=== PATIENT | female | born 1950 | race Caucasian/White ===

== ENCOUNTER → 2018-02-10 | Outpatient (CLI) | payer OTHER | END | disposition home or self-care (01) | LOC: RAH 14:09 | PROVIDERS: ATTEND Emergency Medicine Emergency Medical Services | DX: R93.1 Abnormal findings on diagnostic imaging of heart and coronary circulation (principal); R11.2 Nausea with vomiting, unspecified | CPT/HCPCS: 78227; A9537 ==

== ENCOUNTER 2018-02-27 18:29 | Emergency (ER) | payer OTHER ==
[2018-02-27 19:06] LABS: BASOPHILS % (AUTO) 0.4 % (0.0-5.0); EOSINOPHILS % (AUTO) 0.2 % (0.0-8.0); HEMATOCRIT 42.3 % (36-48); LYMPHOCYTES % (AUTO) 9.8 % (21.0-51.0); MEAN CORPUSCULAR HEMOGLOBIN 32.2 pg (27.0-33.0); MEAN CORPUSCULAR VOLUME 94.7 fL (79-99); MONOCYTES % (AUTO) 5.9 % (3.0-13.0); NEUTROPHILS % (AUTO) 83.7 % (40.0-77.0); PLATELET COUNT (AUTO) 287 K/uL (130-400); RED BLOOD CELL COUNT(AUTO) 4.46 MIL/uL (4.00-5.50); RED CELL DISTRIBUTION WIDTH 13.5 % (11.0-15.5); WHITE BLOOD COUNT (AUTO) 11.7 K/uL (4.8-10.8)
[2018-02-27 19:17] LABS: APPEARANCE,URINE Clear (CLEAR); BILIRUBIN,URINE Negative (NEGATIVE); COLOR,URINE Yellow (YELLOW); GLUCOSE, URINE (UA) Negative (NEGATIVE); KETONES,URINE Trace mg/dL (NEGATIVE); LEUKOCYTE ESTERASE ,URINE Moderate (NEGATIVE); NITRATE,URINE Negative (NEGATIVE); OCCULT BLOOD,URINE Negative (NEGATIVE); PROTEIN,URINE Negative (NEGATIVE); UROBILINOGEN,URINE 0.2 mg/dL (0.2-1.0)
[2018-02-27 19:23] LABS: CREATININE 1.1 mg/dL (0.5-1.5); POTASSIUM 3.7 mmol/L (3.5-5.1)
[2018-02-27 19:27] LABS: ALBUMIN 4.2 g/dL (3.5-5.0); TOTAL PROTEIN, SERUM 8.2 g/dL (6.0-8.3)
[2018-02-27 19:48] LABS: BACTERIA,URINE Few /HPF (None Seen); RBC,URINE 0-1 /HPF (0-1); SQUAMOUS EPITHELIAL CELL,UR 0-2 /HPF (0-2)
== END 2018-02-27 21:46 | disposition home or self-care (01) ==
LOC: EDH 18:29
DX: N30.00 Acute cystitis without hematuria (principal); R50.9 Fever, unspecified; R07.89 Other chest pain; M19.90 Unspecified osteoarthritis, unspecified site; Z88.2 Allergy status to sulfonamides; Z88.6 Allergy status to analgesic agent; Z88.8 Allergy status to other drugs, medicaments and biological substances; Z90.710 Acquired absence of both cervix and uterus; Z90.49 Acquired absence of other specified parts of digestive tract; Z98.890 Other specified postprocedural states
CPT/HCPCS: 36415; 80053; 81001; 83605; 83690; 85025; 87040; 87804

== ENCOUNTER 2018-03-02 03:43 | Emergency (ER) | payer OTHER ==
[2018-03-02 04:29] LABS: BASOPHILS % (AUTO) 0.7 % (0.0-5.0); LYMPHOCYTES % (AUTO) 30.2 % (21.0-51.0); MEAN CORPUSCULAR HEMOGLOBIN 32.3 pg (27.0-33.0); MEAN CORPUSCULAR HGB CONC 33.9 g/dL (32.0-36.0); MEAN CORPUSCULAR VOLUME 95.5 fL (79-99); MONOCYTES % (AUTO) 12.1 % (3.0-13.0); PLATELET COUNT (AUTO) 279 K/uL (130-400); RED BLOOD CELL COUNT(AUTO) 4.08 MIL/uL (4.00-5.50); RED CELL DISTRIBUTION WIDTH 13.5 % (11.0-15.5); WHITE BLOOD COUNT (AUTO) 5.4 K/uL (4.8-10.8)
[2018-03-02 04:30] LABS: APPEARANCE,URINE Clear (CLEAR); BILIRUBIN,URINE Negative (NEGATIVE); COLOR,URINE Yellow (YELLOW); GLUCOSE, URINE (UA) Negative (NEGATIVE); KETONES,URINE Negative (NEGATIVE); LEUKOCYTE ESTERASE ,URINE Small (NEGATIVE); NITRATE,URINE Negative (NEGATIVE); OCCULT BLOOD,URINE Negative (NEGATIVE); PROTEIN,URINE Negative (NEGATIVE); UROBILINOGEN,URINE 0.2 mg/dL (0.2-1.0)
[2018-03-02 04:35] LABS: CREATININE 0.8 mg/dL (0.5-1.5); POTASSIUM 4.3 mmol/L (3.5-5.1)
[2018-03-02 04:51] LABS: BACTERIA,URINE None Seen /HPF (None Seen); RBC,URINE None Seen /HPF (0-1); SQUAMOUS EPITHELIAL CELL,UR Rare /HPF (0-2); WBC,URINE None Seen /HPF (0-1)
== END 2018-03-02 06:43 | disposition home or self-care (01) ==
LOC: EDH 03:43
DX: R39.11 Hesitancy of micturition (principal); R10.30 Lower abdominal pain, unspecified; M19.90 Unspecified osteoarthritis, unspecified site; Z98.890 Other specified postprocedural states; Z88.2 Allergy status to sulfonamides; Z88.1 Allergy status to other antibiotic agents; Z88.6 Allergy status to analgesic agent
CPT/HCPCS: 36415; 74176; 80048; 81001; 85025

== ENCOUNTER → 2022-11-21 | Outpatient (CLI) | payer OTHER | END | disposition home or self-care (01) | LOC: RAH 08:14 | PROVIDERS: ATTEND Internal Medicine | DX: R92.2 Inconclusive mammogram (principal) | CPT/HCPCS: 76641 ==

== ENCOUNTER 2022-12-27 06:46 | Day surgery (SDC) | payer OTHER, MEDICARE ==
[2022-12-24 10:20] LABS: BASOPHILS # (AUTO) 0.03 K/uL (0.00-0.20); BASOPHILS % (AUTO) 0.5 % (0.0-5.0); EOSINOPHILS # (AUTO) 0.07 K/uL (0.00-0.70); EOSINOPHILS % (AUTO) 1.2 % (0.0-8.0); HEMATOCRIT 42.3 % (36-48); IMMATURE GRANULOCYTE ABSOLUTE 0.02 K/uL (0-1); LYMPHOCYTES # (AUTO) 1.4 K/uL (1.0-4.8); LYMPHOCYTES % (AUTO) 22.7 % (21.0-51.0); MEAN CORPUSCULAR HEMOGLOBIN 31.6 pg (27.0-33.0); MEAN CORPUSCULAR HGB CONC 33.6 g/dL (32.0-36.0); MONOCYTES # (AUTO) 0.6 K/uL (0.1-1.0); MONOCYTES % (AUTO) 9.7 % (3.0-13.0); NEUTROPHILS # (AUTO) 3.9 K/uL (1.8-7.7); NEUTROPHILS % (AUTO) 65.6 % (40.0-77.0); PLATELET COUNT (AUTO) 292 K/uL (130-400); RED CELL DISTRIBUTION WIDTH 13.2 % (11.0-15.5)
[2022-12-24 10:22] LABS: APPEARANCE,URINE CLEAR (CLEAR); BILIRUBIN,URINE NEGATIVE (NEGATIVE); COLOR,URINE LIGHT-YELLOW (YELLOW); GLUCOSE, URINE (UA) NEGATIVE (NEGATIVE); KETONES,URINE NEGATIVE (NEGATIVE); LEUKOCYTE ESTERASE ,URINE NEGATIVE Leu/uL (NEGATIVE); NITRATE,URINE NEGATIVE (NEGATIVE); OCCULT BLOOD,URINE NEGATIVE (NEGATIVE); PROTEIN,URINE NEGATIVE (NEGATIVE); UROBILINOGEN,URINE 0.2 mg/dL (0.2-1.0)
[2022-12-24 10:25] LABS: ADD UA MICROSCOPIC NO
[2022-12-24 10:26] VITALS: BP 175/96; PULSE 76; RESP 18
[2022-12-24 10:32] LABS: INR 0.93 (0.85-1.15); PROTHROMBIN TIME 10.7 SEC (9.6-11.6)
[2022-12-24 10:44] LABS: ALBUMIN 3.9 g/dL (3.5-5.0); BILIRUBIN,TOTAL 0.9 mg/dL (0.2-1.0); CREATININE 0.9 mg/dL (0.5-1.5); POTASSIUM 4.1 mmol/L (3.5-5.1); TOTAL PROTEIN, SERUM 7.6 g/dL (6.0-8.3)
[2022-12-27] VITALS (17 sets, daily range): BP systolic 141–169; BP diastolic 68–80; PULSE 62–81; RESP 15–20
[~2022-12-27] VITALS: Ht 152.4 cm; Wt 63.1 kg
[2022-12-27] MEDS ORDERED: LACTATED RINGERS 1000ML 1,000 ML IV ONE (06:55)
[2022-12-27] MEDS: CEFAZOLIN SODIUM 2 GM VIAL ONE ×2 (07:05→09:00)
[2022-12-27] MEDS ORDERED: INDOCYANINE GREEN 25 MG VIAL IJ ONE (07:23)
[2022-12-27] MEDS ORDERED: BUPIVACAINE/PF 0.5% 30ML VIAL ONE (07:31)
[2022-12-27] MEDS ORDERED: SUCCINYLCHOLINE 200MG/10ML SYR ONE (08:02)
[2022-12-27] MEDS ORDERED: ONDANSETRON 4MG INJ ONE (08:02)
[2022-12-27] MEDS ORDERED: MIDAZOLAM HCL 1 MG/ML 2ML VIAL ONE (08:02)
[2022-12-27] MEDS ORDERED: ROCURONIUM 10MG/1ML SYR 10 MG/ML ML ONE (08:02)
[2022-12-27] MEDS ORDERED: METOCLOPRAMIDE 10 MG/2 ML VIAL ONE ×2 (08:02→09:51)
[2022-12-27] MEDS ORDERED: FENTANYL CITRATE PF 50 MCG/1 ML 2ML VIAL ONE (08:02)
[2022-12-27] MEDS ORDERED: PROPOFOL 10 MG/ML 20ML VIAL IV ONE (08:02)
[2022-12-27] MEDS ORDERED: EPHEDRINE SULFATE 50 MG/ML AMPULE ONE (09:21)
[2022-12-27] MEDS ORDERED: NEOSTIGMINE 5MG/5ML SYR IV ONE (09:46)
[2022-12-27] MEDS ORDERED: GLYCOPYRROLATE 1 MG/5 ML SYRINGE ONE (09:47)
[2022-12-27] MEDS ORDERED: DEXAMETHASONE SOD PHOSPHATE 10MG/ML 1ML VIAL ONE (09:51)
== END 2022-12-27 11:45 | disposition home or self-care (01) ==
LOC: DAH 06:46
PROVIDERS: ATTEND Student in an Organized Health Care Education/Training Program
DX: K80.10 Calculus of gallbladder with chronic cholecystitis without obstruction (principal); Z20.822 Contact with and (suspected) exposure to COVID-19; K43.9 Ventral hernia without obstruction or gangrene; I10 Essential (primary) hypertension; K21.9 Gastro-esophageal reflux disease without esophagitis; E78.5 Hyperlipidemia, unspecified; Z79.01 Long term (current) use of anticoagulants; Z79.899 Other long term (current) drug therapy; Z98.890 Other specified postprocedural states; Z98.891 History of uterine scar from previous surgery; Z90.710 Acquired absence of both cervix and uterus; Z90.49 Acquired absence of other specified parts of digestive tract; Z82.49 Family history of ischemic heart disease and other diseases of the circulatory system; Z88.8 Allergy status to other drugs, medicaments and biological substances; Z88.6 Allergy status to analgesic agent; Z88.2 Allergy status to sulfonamides
CPT/HCPCS: 80053; 85025; 85610; 85730; 87426; 81003; 36415; 93005; 47562; 88304; A4663; J7030; J7120 ×2; J3010; J0330; J3490 ×3; J1100; J2710; J2250; J2704; J2405; J2765 ×2; J0690; C1769; A4649; A4215; A4223; A4222; A4221; G0168

== ENCOUNTER → 2023-01-14 | Outpatient (CLI) | payer OTHER, MEDICARE | END | disposition home or self-care (01) | LOC: RAH 08:50 | PROVIDERS: ATTEND Student in an Organized Health Care Education/Training Program | DX: K44.9 Diaphragmatic hernia without obstruction or gangrene (principal); K43.9 Ventral hernia without obstruction or gangrene; K21.9 Gastro-esophageal reflux disease without esophagitis; K44.0 Diaphragmatic hernia with obstruction, without gangrene | CPT/HCPCS: 74240 ==

== ENCOUNTER → 2023-03-19 | Outpatient (CLI) | payer OTHER, MEDICARE | END | disposition home or self-care (01) | LOC: RAH 12:32 | PROVIDERS: ATTEND Family Medicine | DX: R51.9 Headache, unspecified (principal) | CPT/HCPCS: 70551 ==

== ENCOUNTER 2023-05-30 07:34 | Observation (INO) | payer OTHER, MEDICARE ==
[2023-05-27 14:38] VITALS: BP 163/85; PULSE 73; RESP 20
[2023-05-27 14:55] LABS: BASOPHILS # (AUTO) 0.05 K/uL (0.00-0.20); BASOPHILS % (AUTO) 0.8 % (0.0-5.0); EOSINOPHILS # (AUTO) 0.05 K/uL (0.00-0.70); EOSINOPHILS % (AUTO) 0.8 % (0.0-8.0); HEMATOCRIT 41.8 % (36-48); IMMATURE GRANULOCYTE ABSOLUTE 0.02 K/uL (0-1); LYMPHOCYTES # (AUTO) 1.6 K/uL (1.0-4.8); LYMPHOCYTES % (AUTO) 26.6 % (21.0-51.0); MEAN CORPUSCULAR HEMOGLOBIN 31.8 pg (27.0-33.0); MEAN CORPUSCULAR HGB CONC 32.8 g/dL (32.0-36.0); MONOCYTES # (AUTO) 0.6 K/uL (0.1-1.0); MONOCYTES % (AUTO) 8.9 % (3.0-13.0); NEUTROPHILS # (AUTO) 3.9 K/uL (1.8-7.7); NEUTROPHILS % (AUTO) 62.6 % (40.0-77.0); PLATELET COUNT (AUTO) 255 K/uL (130-400); RED BLOOD CELL COUNT(AUTO) 4.31 MIL/uL (4.00-5.50); RED CELL DISTRIBUTION WIDTH 12.5 % (11.0-15.5); WHITE BLOOD COUNT (AUTO) 6.2 K/uL (4.8-10.8)
[2023-05-27 15:05] LABS: APPEARANCE,URINE CLEAR (CLEAR); BILIRUBIN,URINE NEGATIVE (NEGATIVE); COLOR,URINE YELLOW (YELLOW); GLUCOSE, URINE (UA) NEGATIVE (NEGATIVE); KETONES,URINE NEGATIVE (NEGATIVE); LEUKOCYTE ESTERASE ,URINE NEGATIVE Leu/uL (NEGATIVE); NITRATE,URINE NEGATIVE (NEGATIVE); OCCULT BLOOD,URINE NEGATIVE (NEGATIVE); PROTEIN,URINE NEGATIVE (NEGATIVE); UROBILINOGEN,URINE 0.2 mg/dL (0.2-1.0)
[2023-05-27 15:08] LABS: ADD UA MICROSCOPIC NO
[2023-05-27 15:16] LABS: INR < 0.93 (0.85-1.15); PROTHROMBIN TIME 10.5 SEC (9.6-11.6)
[2023-05-27 15:18] LABS: ALBUMIN 3.7 g/dL (3.5-5.0); BILIRUBIN,TOTAL 0.5 mg/dL (0.2-1.0); CREATININE 0.8 mg/dL (0.5-1.5); PARTIAL THROMBOPLASTIN TIME 25.6 SEC (26.3-35.5); POTASSIUM 4.1 mmol/L (3.5-5.1); TOTAL PROTEIN, SERUM 7.4 g/dL (6.0-8.3)
[~2023-05-30] VITALS: Ht 152.4 cm; Wt 64.2 kg
[2023-05-30] VITALS (25 sets, daily range): BP systolic 111–169; BP diastolic 60–93; PULSE 70–93; RESP 17–20
[~2023-05-30 07:34] MED LIST: DEXAMETHASONE SOD PHOSPHATE 10MG/ML 1ML VIAL ONE; FENTANYL CITRATE PF 50 MCG/1 ML 2ML VIAL ONE; GLYCOPYRROLATE 0.2 MG/ML 5 ML VIAL ONE; LIDOCAINE PF 100MG/5ML (2%) SYRINGE 5ML ONE; MIDAZOLAM HCL 1 MG/ML 2ML VIAL ONE; NEOSTIGMINE METHYLSULFATE 1MG/ML IV ONE; ONDANSETRON 4MG INJ ONE; PROPOFOL 10 MG/ML 20ML VIAL IV ONE; ROCURONIUM BROMIDE 10MG/1ML 5ML VL ONE; SUCCINYLCHOLINE CHLORIDE 20 MG/ML 10 ML VIAL ONE
[2023-05-30] MEDS ORDERED: BUPIVACAINE/PF 0.5% 30ML VIAL ONE (07:49)
[2023-05-30] MEDS ORDERED: INDOCYANINE GREEN 25 MG VIAL IJ ONE (07:56)
[2023-05-30] MEDS ORDERED: LACTATED RINGERS 1000ML 1,000 ML IV ONE (07:58)
[2023-05-30] MEDS ORDERED: ALBUMIN (HUMAN) 5% 250 ML IV ONE (08:25)
[2023-05-30] MEDS: CEFAZOLIN SODIUM 2 GM VIAL ONE ×2 (09:15→09:20)
[2023-05-30] MEDS ORDERED: FENTANYL CITRATE PF 50 MCG/1 ML 2ML VIAL ONE (09:17)
[2023-05-30] MEDS ORDERED: PHENYLEPHRINE HCL 10 MG/ML 1ML VIAL IV ONE (11:07)
[2023-05-30] MEDS ORDERED: SUGAMMADEX SODIUM 200 MG/2 ML VIAL IV ONE (12:08)
[2023-05-30] MEDS ORDERED: MEPERIDINE-PF 25 MG/ML SYG ONE (12:25)
[2023-05-30] MEDS ORDERED: MORPHINE 4 MG SYG IVP PRN (16:30)
[2023-05-30] MEDS ORDERED: ONDANSETRON 4MG INJ IVP PRN (16:30)
[2023-05-30] MEDS: SIMETHICONE 80 MG TAB.CHEW PO SCH (20:29)
[2023-05-30] MEDS ORDERED: MEPERIDINE-PF 25 MG/ML SYG IVP PRN (21:00)
[2023-05-30] MEDS ORDERED: DIPHENHYDRAMINE HCL 25 MG CAPSULE PO SCH (21:00)
[2023-05-31] VITALS (8 sets, daily range): BP systolic 149–164; BP diastolic 68–93; PULSE 83–90; RESP 18–20; O2SAT 97–98
[2023-05-31 04:37] LABS: HEMATOCRIT 41.2 % (36-48); MEAN CORPUSCULAR HEMOGLOBIN 31.1 pg (27.0-33.0); MEAN CORPUSCULAR HGB CONC 32.5 g/dL (32.0-36.0); MEAN CORPUSCULAR VOLUME 95.6 fL (79-99); RED BLOOD CELL COUNT(AUTO) 4.31 MIL/uL (4.00-5.50); RED CELL DISTRIBUTION WIDTH 12.9 % (11.0-15.5); WHITE BLOOD COUNT (AUTO) 17.6 K/uL (4.8-10.8)
[2023-05-31 04:55] LABS: ALBUMIN 3.7 g/dL (3.5-5.0); BILIRUBIN,TOTAL 0.8 mg/dL (0.2-1.0); CREATININE 0.9 mg/dL (0.5-1.5); POTASSIUM 4.2 mmol/L (3.5-5.1); TOTAL PROTEIN, SERUM 7.3 g/dL (6.0-8.3)
[2023-05-31] MEDS ORDERED: IBUPROFEN 100 MG/5 ML SUSP UDCUP PO PRN (09:00)
[2023-05-31] MEDS ORDERED: ACETAMINOPHEN 650 MG/20.3 ML UDCUP PO PRN (09:00)
[2023-05-31] MEDS: SIMETHICONE 80 MG TAB.CHEW PO SCH ×3 (09:16→21:27)
[2023-05-31] MEDS: FAMOTIDINE 20MG TAB PO SCH (09:16)
[2023-06-01] VITALS: BP 154/78; PULSE 74; RESP 18
[2023-06-01 04:00] VITALS: BP 154/95; PULSE 90; RESP 16
[2023-06-01 08:00] VITALS: BP 159/98; PULSE 89; RESP 18
[2023-06-01] MEDS: FAMOTIDINE 20MG TAB PO SCH (08:52)
[2023-06-01] MEDS: SIMETHICONE 80 MG TAB.CHEW PO SCH (08:52)
[2023-06-01 11:26] VITALS: BP 163/89; PULSE 91; RESP 18
== END 2023-06-01 14:10 | disposition home or self-care (01) ==
LOC: DAH 07:34 → UNDOADMOB 07:35 → DAHIP 07:35 → DAH 07:35 → 4BH 13:45 → DAHIP 13:45
PROVIDERS: ADMIT Student in an Organized Health Care Education/Training Program; ATTEND Student in an Organized Health Care Education/Training Program
DX: K44.9 Diaphragmatic hernia without obstruction or gangrene (principal); E78.5 Hyperlipidemia, unspecified; I10 Essential (primary) hypertension; R94.5 Abnormal results of liver function studies; K21.9 Gastro-esophageal reflux disease without esophagitis; D72.829 Elevated white blood cell count, unspecified; Z90.710 Acquired absence of both cervix and uterus; Z90.49 Acquired absence of other specified parts of digestive tract; Z86.2 Personal history of diseases of the blood and blood-forming organs and certain disorders involving the immune mechanism
CPT/HCPCS: 80053 ×2; 85025; 85610; 85730; 81003; 36415 ×2; 96374; 96375; 93005; 43282; 88305; 85027; 97161; 97116; 97530 ×2; A6260; G0378 ×47; A4600; A4663; J7030; A4344; A4215 ×2; P9045; J7120; J3010 ×2; J1100; J0330; J3490 ×2; J2001; J2250; J2704; J2405 ×2; J2270; J2710; J0665; J2175; J2371; J0690; G0168; C1781; A4930; A4223; A4222; A4221; Q0163; G8980-CI; G8983-CH

== ENCOUNTER → 2023-08-12 | Outpatient (CLI) | payer OTHER, MEDICARE | END | disposition home or self-care (01) | LOC: RAH 09:34 | PROVIDERS: ATTEND Student in an Organized Health Care Education/Training Program | DX: K44.9 Diaphragmatic hernia without obstruction or gangrene (principal) | CPT/HCPCS: 74240 ==

== ENCOUNTER 2024-08-31 11:18 | Observation (INO) | payer OTHER, MEDICARE ==
[2024-08-31] VITALS (7 sets, daily range): BP systolic 134–148; BP diastolic 63–94; PULSE 69–73; RESP 17–18; TEMP 97.5–97.8; O2SAT 97–99
[~2024-08-31] VITALS: Ht 152.4 cm; Wt 65.3 kg
--- NOTE | 2024-08-31 11:30 | EKG ---
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
[2024-08-31 11:52] LABS: BASOPHILS # (AUTO) 0.05 K/uL (0.00-0.20); BASOPHILS % (AUTO) 0.8 % (0.0-5.0); EOSINOPHILS # (AUTO) 0.05 K/uL (0.00-0.70); EOSINOPHILS % (AUTO) 0.8 % (0.0-8.0); HEMATOCRIT 42.8 % (36-48); IMMATURE GRANULOCYTE ABSOLUTE 0.02 K/uL (0-1); LYMPHOCYTES # (AUTO) 1.7 K/uL (1.0-4.8); LYMPHOCYTES % (AUTO) 27.9 % (21.0-51.0); MEAN CORPUSCULAR HGB CONC 33.2 g/dL (32.0-36.0); MEAN CORPUSCULAR VOLUME 96.4 fL (79-99); MONOCYTES # (AUTO) 0.5 K/uL (0.1-1.0); MONOCYTES % (AUTO) 7.9 % (3.0-13.0); NEUTROPHILS # (AUTO) 3.7 K/uL (1.8-7.7); NEUTROPHILS % (AUTO) 62.3 % (40.0-77.0); PLATELET COUNT (AUTO) 272 K/uL (130-400); RED BLOOD CELL COUNT(AUTO) 4.44 MIL/uL (4.00-5.50); RED CELL DISTRIBUTION WIDTH 12.8 % (11.0-15.5); WHITE BLOOD COUNT (AUTO) 5.9 K/uL (4.8-10.8)
[2024-08-31 11:59] LABS: CREATININE 0.9 mg/dL (0.5-1.0); POTASSIUM 4.1 mmol/L (3.5-5.1)
[2024-08-31 12:02] LABS: INR 0.98 (0.85-1.15); PROTHROMBIN TIME 10.4 SEC (9.6-11.6)
[2024-08-31 12:04] LABS: PARTIAL THROMBOPLASTIN TIME 24.2 SEC (26.3-35.5)
[2024-08-31 12:11] LABS: B-TYPE NATRIURETIC PEPTIDE 50 pg/mL (0-100)
--- NOTE | 2024-08-31 12:21 | HMCIMG ---
PORTABLE CHEST RADIOGRAPH INDICATION: cp COMPARISON: None FINDINGS: cardiac monitor technician leads overlie the field of view. Heart size is normal. The pulmonary vascularity and jammie appear normal. No abnormal pulmonary parenchymal opacity or consolidation identified. No significant pleural effusion noted. No pneumothorax detected. IMPRESSION: No radiographic evidence for any acute cardiopulmonary process.
[2024-08-31] MEDS: LACTATED RINGERS 1000ML 1,000 ML IV ONE (12:23)
--- NOTE | 2024-08-31 12:36 | ERN ---
General Chief Complaint: Chest Pain Stated Complaint: CP Time Seen by MD: 11:19 Source: patient, EMS History of Present Illness Initial Comments This is a 74-year-old female coming in to be evaluated for chest pain. Per patient she was seen by her PCP and sent in for further evaluation secondary to having the chest discomfort. Along with this patient was informed that there was some changes in her EKG. Patient received nitroglycerin sublingual and states her pain findings subsided. Allergies: Coded Allergies: Sulfa (Sulfonamide Antibiotics) (Unverified Allergy, Unknown, 12/24/22) codeine (Unverified Allergy, Unknown, 12/24/22) propoxyphene (Unverified Allergy, Unknown, 12/24/22) tetracycline (Unverified Allergy, Unknown, 12/24/22) Home Meds No Active Prescriptions or Reported Meds Past Medical History Past Medical History: Endometriosis, High Cholesterol Past Surgical History: Appendectomy, Cholecystectomy, Other, Surgical History Other: HERNIA REPAIR, TUBAL LUGATION, TUMOR REMOVAL, HIATAL HERNIA, CARPAL TUNNEL ROS Dictation CONSTITUTIONAL: No chills, no fever, no weakness, no diaphoresis, no malaise. HEAD/FACE: No signs of trauma. EENT: No eye pain, no blurred vision, no tearing, no double vision, no ear pain, no ear discharge, no nose pain, no nasal congestion, no throat pain, no throat swelling, no mouth pain. RESPIRATORY: No cough, no orthopnea, no SOB, no stridor, no wheezing. CARDIOVASCULAR: chest pain, no edema, no palpitations, no syncope. GASTROINTESTINAL/ABDOMINAL: No abdominal pain, no constipation, no diarrhea, no nausea, no vomiting. GENITOURINARY: No abnormal discharge, no dysuria, no frequent urination, no hematuria. No complaints of pain in the genitals. MUSCULOSKELETAL: No back pain, no gout, no joint pain, no joint swelling, no muscle pain, no muscle stiffness, no neck pain. INTEGUMENTARY: No change in color, no change in hair/nails, no dryness, no lesion, no lumps, no rash. NEUROLOGICAL/PSYCH: No anxiety, not depressed, no emotional problem, no headache, no numbness, no pre-existing deficit, no history of seizures, no tremors, no weakness. HEMATOLOGIC/LYMPHATIC: Not anemic, no history of blood clots, no apparent bleeding, no bruising, glands not swollen. All Systems Negative, Except as Noted. Physical Exam Physical Exam Dictation VITAL SIGNS: Reviewed. GENERAL APPEARANCE: Alert, oriented x3, no acute distress, obese. HEAD AND FACE: Non-traumatic. EYES: PERRL, pink conjunctivas, eyelid no trauma, anterior chamber clear. EARS: Pinnas intact and no signs of trauma or erythema. Ear canals clear and no discharge. TMs no erythema. NOSE: No discharge, no bleeding. OROPHARYNX: Mouth normal, teeth no caries, tongue pink. Pharynx clear, no erythema. Tonsils no exudates, no abscesses noted. Mucous membrane moist. NECK: Supple, non-tender, no thyromegaly, no masses, no JVD, no bruits. BREAST: Deferred. CHEST: No tenderness, no crepitus, no paradoxical movement, no retractions. LUNGS: Clear, well-ventilated, symmetric, no rales, no wheezing, no rhonchi, no stridor, good breath sounds bilaterally. HEART: Regular rate, regular rhythm, no murmur, no gallops. VASCULAR: No peripheral edema. ABDOMEN: Soft, positive bowel sounds, nondistended, no guarding, nontender, no rebound, no masses no hepatomegaly, no splenomegaly, no Ochoa's sign, no hernias. RECTAL: Deferred. GENITAL: Deferred. NEUROLOGICAL: Normal speech, gross motor function intact, gross sensory function intact. MUSCULOSKELETAL: Neck nontender, full range of motion, back nontender, full range of motion. EXTREMITIES: Nontender, full range of motion. SKIN: Color pink, dry, no turgor, no rash, no lacerations, no abrasions, no contusions. LYMPHATICS: Deferred. Results Laboratory and Microbiology Lab and Micro Result Laboratory Tests Test 08/31/24 11:46 08/31/24 12:04 White Blood Count 5.9 K/uL (4.8-10.8) Red Blood Count 4.44 MIL/uL (4.00-5.50) Hemoglobin 14.2 g/dL (12.0-16.0) Hematocrit 42.8 % (36-48) Mean Corpuscular Volume 96.4 fL (79-99) Mean Corpuscular Hemoglobin 32.0 pg (27.0-33.0) Mean Corpuscular Hemoglobin Concent 33.2 g/dL (32.0-36.0) Red Cell Distribution Width 12.8 % (11.0-15.5) Platelet Count 272 K/uL (130-400) Mean Platelet Volume 9.7 fL (7.5-10.5) Immature Granulocyte % (Auto) 0.3 % (0-1) Neutrophils (%) (Auto) 62.3 % (40.0-77.0) Lymphocytes (%) (Auto) 27.9 % (21.0-51.0) Monocytes (%) (Auto) 7.9 % (3.0-13.0) Eosinophils (%) (Auto) 0.8 % (0.0-8.0) Basophils (%) (Auto) 0.8 % (0.0-5.0) Neutrophils # (Auto) 3.7 K/uL (1.8-7.7) Lymphocytes # (Auto) 1.7 K/uL (1.0-4.8) Monocytes # (Auto) 0.5 K/uL (0.1-1.0) Eosinophils # (Auto) 0.05 K/uL (0.00-0.70) Basophils # (Auto) 0.05 K/uL (0.00-0.20) Absolute Immature Granulocyte (auto 0.02 K/uL (0-1) Nucleated Red Blood Cells 0.0 % (0.0-0.19) Prothrombin Time 10.4 SEC (9.6-11.6) Prothromb Time International Ratio 0.98 (0.85-1.15) Activated Partial Thromboplast Time 24.2 SEC (26.3-35.5) L Sodium Level 140 mmol/L (136-145) Potassium Level 4.1 mmol/L (3.5-5.1) Chloride Level 103 mmol/L (101-111) Carbon Dioxide Level 28 mmol/L (21-32) Blood Urea Nitrogen 13 mg/dL (7-18) Creatinine 0.9 mg/dL (0.5-1.0) Glomerular Filtration Rate Calc 66 mL/min (>90) Random Glucose 114 mg/dL (70-105) H Total Calcium 9.0 mg/dL (8.5-10.1) Total Creatine Kinase 166 U/L (21-232) Troponin I High Sensitivity 6 ng/L (4-50) B-Type Natriuretic Peptide 50 pg/mL (0-100) Urine Color LIGHT-YELLOW (YELLOW) Urine Appearance CLEAR (CLEAR) Urine pH 5.0 (5.0-8.0) Urine Specific [place] 1.008 (1.001-1.031) Urine Protein NEGATIVE mg/dL (NEGATIVE) Urine Glucose (UA) NEGATIVE mg/dL (NEGATIVE) Urine Ketones NEGATIVE mg/dL (NEGATIVE) Urine Occult Blood NEGATIVE (NEGATIVE) Urine Nitrate NEGATIVE (NEGATIVE) Urine Bilirubin NEGATIVE mg/dL (NEGATIVE) Urine Urobilinogen 0.2 mg/dL (0.2-1.0) Urine Leukocyte Esterase NEGATIVE Víctor/uL Labs Reviewed?: Yes EKG/XRAY/US/CT/MRI EKG Comment 08/31/2024 time 11:22 a.m. Ventricular rate 74 Sinus rhythm [place] [address] wave elevation or depression X-RAY Comment [place] [address] [place] [address] IMAGING REPORT Signed PATIENT: ROYER SERRANO MR#: [id number] : 1950 SEX: F AGE: 74 LOCATION: [facility] ORDER 27 STATUS: [facility] REPORT#: [id number] SERVICE 25 REASON: cp ORDERING PHYSICIAN: ANUJA TIWARI MD PROCEDURE: CXR1VW - CHEST 1VW PORTABLE CHEST RADIOGRAPH INDICATION: cp COMPARISON: None FINDINGS: conveyor monitor leads overlie the field of view. Heart size is normal. The pulmonary vascularity and jammie appear normal. No abnormal pulmonary parenchymal opacity or consolidation identified. No significant pleural effusion noted. No pneumothorax detected. IMPRESSION: No radiographic evidence for any acute cardiopulmonary process. DICTATED BY: MCKENZIE WITT MD DATE: 08/31/241217 ELECTRONICALLY SIGNED BY: MCKENZIE WITT MD DATE: 08/31/24 1221 [facility] MDM: Differential diagnosis: ACS, chest pain, Rationale: Tests considered and ordered secondary to shared decision making include: labs, ECG and radiology Previous outside records reviewed: Old ER visits. Risk of complication and/or morbidity or mortality of patient management: None Medications-Per medication reconciliation Need for hospitalization: Patient does meet criteria for hospitalization. Need for emergency major/minor surgery: No There are no social concerns with this patient. Prescription drug management Prescriptions will include symptomatic care Patient's prior external medical records from other ER visits were reviewed by me as indicated. Prior testing and results from previous visits were reviewed. Prior tests were taken into account with medical decision making and resource utilization, independent historian/historians were used to obtain complete medical history. I independently interpreted the test that were performed, results were reviewed by me and considered findings on radiology if ordered. Medical management and examination interpretation discussions were had by me with other qualified healthcare professionals as indicated for the patient's care. Patient is a 74-year-old female coming in to be evaluated for chest pressure chest pain. Per patient she was evaluated by her PCP and advised to follow up immediately in the nearest ER secondary to changes in the EKG. She did not know which changes were concerning. During ER visit patient has a remained asymptomatic but states that the pain only subsided with the sublingual nitroglycerin. Patient will be admitted under the care of [facility] for further evaluation. ED Course Orders Procedure Category Date Status Time Cbc With Differential LAB 08/31/24 Complete 11:26 Prothrombin Time With LAB 08/31/24 Complete INR 11:26 B-Type Natriuretic LAB 08/31/24 Complete Peptide 11:26 Chest 1vw RAD 08/31/24 Resulted 11:26 12 Lead Ekg Tracing- EKG 08/31/24 Complete Technical 11:26 Lactated Ringers PHA 08/31/24 Complete 1000ml (Lactated 11:30 Creatine Kinase, Total LAB 08/31/24 Complete 11:26 Troponin I High LAB 08/31/24 Complete Sensitivity 11:26 Urinalysis Profile LAB 08/31/24 Complete 11:26 Partial LAB 08/31/24 Complete Thromboplastin Time 11:26 Basic Metabolic Panel LAB 08/31/24 Complete 11:26 Aspirin 81mg Chew Tab PHA 08/31/24 In Process (Aspirin 81mg Chew 13:00 Troponin I High LAB 08/31/24 Logged Sensitivity 12:44 Current Medications Medications (Trade) Dose Ordered Sig/Aki Route PRN Reason Start Time Stop Time Status Last Admin Dose Admin Aspirin (Aspirin 81mg Chew Tab) 81 mg ONCE ONCE PO 08/31/24 13:00 08/31/24 13:01 Lactated Ringer's 1,000 ml @ 0 mls/hr ONCE ONCE IV 08/31/24 11:30 08/31/24 11:31 DC 08/31/24 12:23 Vital Signs Date Time Temp Pulse Resp B/P (MAP) Pulse Ox O2 Delivery O2 Flow Rate FiO2 08/31/24 12:16 98.1 68 16 185/95 97 Room Air* 0 21 08/31/24 11:19 97.5 75 16 188/89 98 Nasal Cannula 2.0 HEART Score Response (Comments) Value History: High suspicion (+2) 2 EKG: Repolarization changes 1 Age: > 65yrs (+2) 2 Risk Factors: 1-2 risk factors (+1) 1 Initial Troponin: Normal limit (0) 0 HEART Score Risk: High Risk for MACE (7-10) Total 6 DX & DISP Disposition: Inpatient Decision to Admit Time: 12:46 Departure Impression: Primary Impression: Chest pain Condition: Stable Scripts No Active Prescriptions or Reported Meds Referrals: FLOWER WAITE M.D. (PCP) ANUJA TIWARI MD Aug 31, 2024 12:36
[2024-08-31 12:40] LABS: APPEARANCE,URINE CLEAR (CLEAR); BILIRUBIN,URINE NEGATIVE (NEGATIVE); COLOR,URINE LIGHT-YELLOW (YELLOW); GLUCOSE, URINE (UA) NEGATIVE (NEGATIVE); KETONES,URINE NEGATIVE (NEGATIVE); LEUKOCYTE ESTERASE ,URINE NEGATIVE Leu/uL (NEGATIVE); NITRATE,URINE NEGATIVE (NEGATIVE); OCCULT BLOOD,URINE NEGATIVE (NEGATIVE); PROTEIN,URINE NEGATIVE (NEGATIVE); UROBILINOGEN,URINE 0.2 mg/dL (0.2-1.0)
[2024-08-31 12:44] LABS: ADD UA MICROSCOPIC NO
[2024-08-31] MEDS: ASPIRIN 81MG CHEW TAB PO ONE (12:58)
[2024-08-31] MEDS ORDERED: LIDOCAINE HCL 2% VISCOUS 30 ML, MAG/ALUM/SIMETH 30ML 30 ML, DICYCLOMINE HCL 20 MG PO PRN (13:00)
[2024-08-31] MEDS ORDERED: ondanSETRON 4MG INJ IV PRN (13:00)
[2024-08-31] MEDS ORDERED: polyETHYLene GLYCol 3350 17 GM POWD.PACK PO PRN (13:00)
[2024-08-31] MEDS ORDERED: acetaMINOPHEN 325 MG TAB PO PRN ×2 (13:00)
[2024-08-31] MEDS ORDERED: guaiFENesin-DM 200/20MG 10ML PO PRN (13:00)
[2024-08-31] MEDS ORDERED: guaiFENesin SUGAR-FREE 100 MG/5 ML UDCUP PO PRN (13:00)
[2024-08-31] MEDS ORDERED: DiphenhydrAMINE HCL 50 MG/ML VIAL IV PRN (13:00)
[2024-08-31] MEDS ORDERED: doCUSate SODIUM 100 MG CAP PO PRN (13:00)
[2024-08-31] MEDS ORDERED: BENZOCAINE/MENTH/CETYLPYRD CL 1 EACH LOZENGE MM PRN (13:00)
[2024-08-31] MEDS ORDERED: LACTULOSE 20 GM/30 ML UDCUP PO PRN (13:00)
[2024-08-31] MEDS ORDERED: NITROGLYCERIN 0.4 MG SL TAB SL PRN (13:00)
[2024-08-31] MEDS ORDERED: MAG/ALUM/SIMETH 30 ML UDCUP PO PRN (13:00)
[2024-08-31] MEDS ORDERED: DiphenhydrAMINE HCL 25 MG CAPSULE PO PRN (13:00)
[2024-08-31] MEDS ORDERED: ARTIFICAL TEARS SOL 15 ML OP PRN (13:00)
[2024-08-31] MEDS: hydrALAZine 25MG TABLET PO PRN (14:48)
--- NOTE | 2024-08-31 15:49 | HP ---
[facility] HISTORY & PHYSICAL Date Patient Seen: Aug 31, 2024 Time of Visit: 15:49 Supervising Physician: [Dr. Elise] Primary Care Physician: [Dr. Rosy Jimenez] Outpatient Specialists: [ ] Inpatient Consults: [] PROBLEM LIST: Atypical chest pain Pleurisy Hypertension Chronic constipation Plan: Repeat troponin Order lipid panel Order echocardiogram Monitor telemetry One time dose of clonidine 0.1 mg Start amlodipine 5mg daily if not improved HPI: [This is a 74-year-old female with a history of hypertension who presents to the ED from her PCP's office for evaluation of chest pain. Patient states her chest pain has mild currently /10 but has been persistent for about a week. She denies any chest pressure, diaphoresis, radiation of pain principal. No shortness of breath on exertion. Her chest pain is reproducible with bending over and twisting of her torso. Troponin is negative X2. EKG reads old previous infarct. Telemetry at bedside shows NSR without ST elevation or depression. No diarrhea but admits a history of constipation due to multiple abdominal surgeries. She states her blood pressure was elevated being with systolic above 200 prior to admission. Does not usually take antihypertensives. She has never seen a patrol mother, denies any significant medical history besides previous abdominal surgeries including appendectomy, cholecystectomy, C- section, hernia repair, and tubal ligation. She is non-smoker. Admits being active in life, cutting her own yard. She has not seen a patrol mother in the past. Admits a hx of similar chest pain in the past and was diagnosed with pleurisy.] PAST MEDICAL HX: see above PAST SURGICAL HX: noncontributory SOCIAL HISTORY: No tobacco, ETOH, or illicit drug use Coded Allergies: Sulfa (Sulfonamide Antibiotics) (Unverified Allergy, Unknown, 12/24/22) codeine (Unverified Allergy, Unknown, 12/24/22) propoxyphene (Unverified Allergy, Unknown, 12/24/22) tetracycline (Unverified Allergy, Unknown, 12/24/22) REVIEW OF SYSTEMS: 12 point ROS reviewed with patient. Pertinent positives mentioned above. Otherwise negative. PHYSICAL EXAM: GENERAL: alert, weak, awake oriented x 3 HEENT: EOMI, Sclera non icteric, moist mucosa NECK: Supple, no JVD, trachea midline LUNGS: Clear breath sounds bilaterally. No wheezes HEART: Regular rate and rhythm. Normal S1 and S2, without murmurs ABD: Abdomen soft, nontender. Bowel sounds present EXT: No clubbing cyanosis or edema NEURO: Alert and oriented to person, follows commands Vital Signs (last 8hr) Date Time Temp Pulse Resp B/P (MAP) Pulse Ox O2 Delivery O2 Flow Rate FiO2 08/31/24 14:48 98.1 89 18 192/97 98 Room Air* 0 21 08/31/24 14:26 71 18 N/A Room Air 21 08/31/24 12:16 98.1 68 16 185/95 97 Room Air* 0 21 08/31/24 11:19 97.5 75 16 188/89 98 Nasal Cannula 2.0 LABS: Hematology Labs: Test 08/31/24 11:46 Range/Units White Blood Count 5.9 4.8-10.8 K/uL Red Blood Count 4.44 4.00-5.50 MIL/uL Hemoglobin 14.2 12.0-16.0 g/dL Hematocrit 42.8 36-48 % Mean Corpuscular Volume 96.4 79-99 fL Mean Corpuscular Hemoglobin 32.0 27.0-33.0 pg Mean Corpuscular Hemoglobin Concent 33.2 32.0-36.0 g/dL Red Cell Distribution Width 12.8 11.0-15.5 % Platelet Count 272 130-400 K/uL Mean Platelet Volume 9.7 7.5-10.5 fL Immature Granulocyte % (Auto) 0.3 0-1 % Neutrophils (%) (Auto) 62.3 40.0-77.0 % Lymphocytes (%) (Auto) 27.9 21.0-51.0 % Monocytes (%) (Auto) 7.9 3.0-13.0 % Eosinophils (%) (Auto) 0.8 0.0-8.0 % Basophils (%) (Auto) 0.8 0.0-5.0 % Neutrophils # (Auto) 3.7 1.8-7.7 K/uL Lymphocytes # (Auto) 1.7 1.0-4.8 K/uL Monocytes # (Auto) 0.5 0.1-1.0 K/uL Eosinophils # (Auto) 0.05 0.00-0.70 K/uL Basophils # (Auto) 0.05 0.00-0.20 K/uL Absolute Immature Granulocyte (auto 0.02 0-1 K/uL Nucleated Red Blood Cells 0.0 0.0-0.19 % Chemistry Labs: Test 08/31/24 13:26 08/31/24 11:46 Range/Units Troponin I High Sensitivity 8 4-50 ng/L Sodium Level 140 136-145 mmol/L Potassium Level 4.1 3.5-5.1 mmol/L Chloride Level 103 101-111 mmol/L Carbon Dioxide Level 28 21-32 mmol/L Blood Urea Nitrogen 13 7-18 mg/dL Creatinine 0.9 0.5-1.0 mg/dL Glomerular Filtration Rate Calc 66 >90 mL/min Random Glucose 114 H 70-105 mg/dL Total Calcium 9.0 8.5-10.1 mg/dL Total Creatine Kinase 166 21-232 U/L B-Type Natriuretic Peptide 50 0-100 pg/mL Coagulation Labs: Test 08/31/24 11:46 Range/Units Prothrombin Time 10.4 9.6-11.6 SEC Prothromb Time International Ratio 0.98 0.85-1.15 Activated Partial Thromboplast Time 24.2 L 26.3-35.5 SEC DIAGNOSTICS / RADIOLOGY RESULTS: [ ] PLAN NEURO: Minimize central acting medications as possible. Maintain fall precautions, adequate lighting during the day PULMONARY: Supplemental 02 as needed. Maintain aspiration precautions at all times CARDIOVASCULAR: Follow hemodynamics. Vital signs per facility protocol GI & NUTRITION: Continue with nutritional support. Continue stool softeners and laxatives as needed. KIDNEYS & ELECTROLYTES: Strict monitoring of intake, output and overall fluid balance. Avoid nephrotoxic medications to the extent possible. Medications to be dosed according to renal function. Monitor electrolytes and replace as needed ENDOCRINE: Maintain blood glucose between 100-180 at all times. Hypoglycemia protocol in place INFECTIOUS DISEASE: Trend temperature, WBC and procalcitonin level Follow cultures, deescalate antibiotics as soon as possible. Panculture if new onset fever ONCOLOGY/HEMATOLOGY/COAGULATION: Monitor for s/s of bleeding Monitor hemoglobin, coagulation studies as needed SKIN: Pressure ulcer prevention per facility protocol Specialty mattress ORTHO/REHAB: Continue PT/OT Prophylaxis: Continue GI and DVT prophylaxis Code Status: Full Resuscitation Disposition: TBD Other: Total patient care time exceeds 35 minutes excluding all procedures. SHAR ARELLANO Aug 31, 2024 15:49
[2024-08-31] MEDS: INSULIN LISpro 100 UNIT/ML 3ML SQ SCH (16:20)
[2024-08-31] MEDS ORDERED: CEFD300C3 PO ×2 (16:36)
[2024-08-31] MEDS: cloNIDine HCL 0.1 MG TABLET PO ONE (16:37)
--- NOTE | 2024-08-31 16:38 | NUR ---
REPORT GIVEN TO REMIGIO NURSE AT 1630 PT AAOX4. PT STABLE NO DISTRESS, BLOOD PRESSURE IS ELEVATED, CALLED SPOKE TO SHAR COLON ORDER FOR CLONIDE, PT GIVEN DOSE PO PRIOR TO TRANFER TO FLOOR, REMIGIO AWARE. SHAR WILL GO TO ROOM AND RECHECK WITH PT TO SEE BLOOD PRESSURE IF IMPROVED.
[2024-08-31] MEDS: ALBUTEROL 0.083% 2.5 MG/3 ML INH IH SCH (19:14)
[2024-08-31] MEDS: FAMOTIDINE 20MG TAB PO SCH (20:22)
[2024-08-31] MEDS ORDERED: FAMOTIDINE 20MG VIAL IV SCH (21:00)
[2024-09-01] VITALS (9 sets, daily range): BP systolic 134–153; BP diastolic 73–79; PULSE 66–79; RESP 16–19; TEMP 97.7–98.2; O2SAT 95–98
[2024-09-01] MEDS ORDERED: IOHEXOL-350 75 ML VIAL IV ONE (11:22)
--- NOTE | 2024-09-01 12:27 | HMCIMG ---
CT ANGIOGRAM OF THE CHEST WITHOUT AND WITH CONTRAST. CT RECONSTRUCTIONS INDICATION: Pulmonary embolism evaluation TECHNIQUE: Routine axial images using 3 mm slice thickness were acquired from the lung apices to the bases before and after the intravenous administration of 75 mL of Omnipaque 350 contrast material using the pulmonary embolism protocol. Maximum Intensity Projection imaging in the sagittal and coronal planes were also provided. CT was performed with one or more of the following dose reduction techniques: Automated exposure control, adjustment of the mA and/or kV according to patient size, or use of iterative reconstruction technique. COMPARISON: 02/10/2023 CT chest FINDINGS: The contrast bolus is of good quality for diagnosis of pulmonary embolism. The heart size is within normal limits without pericardial effusion. The main pulmonary arteries, segmental branches, and visualized subsegmental pulmonary arteries appear normal without intraluminal filling defects. Pulmonary trunk is not enlarged. No evidence for thoracic aortic aneurysm or dissection. The origins of the great vessels and thoracic aorta appear normal. The visible portions of the trachea and airways are patent. No pleural effusion, pneumothorax, abnormal opacity or consolidation, pulmonary nodule, or mass identified. Linear scarring at both lung bases. No axillary, hilar, or mediastinal lymphadenopathy detected. Small hiatal hernia. Visible osseous structures are intact. IMPRESSION: No evidence for pulmonary embolism. Small hiatal hernia.
[2024-09-01] MEDS: 0.9% NACL 500ML IV.SOLN 500 ML IV SCH (15:03)
[2024-09-01] MEDS ORDERED: AMLO-257 PO (16:01)
--- NOTE | 2024-09-01 16:06 | DS ---
[facility] DISCHARGE SUMMARY Date Patient Seen: Sep 01, 2024 Time of Visit: 16:02 Supervising Physician: [Dr. Marie] Primary Care Physician: [Dr. Rosy Jimenez] Outpatient Specialists: [ ] Inpatient Consults: [] PROBLEM LIST: Atypical chest pain, Pleurisy Hypertension Chronic constipation Plan: Start amlodipine 5mg daily F/U with PCP for monitoring of blood pressure CTA negative for PE Troponin negative X 3 HOSPITAL COURSE: HPI (per admitting provider) [This is a 74-year-old female with a history of hypertension who presents to the ED from her PCP's office for evaluation of chest pain. Patient states her chest pain has mild currently 05/28 but has been persistent for about a week. She denies any chest pressure, diaphoresis, radiation of pain principal. No shortness of breath on exertion. Her chest pain is reproducible with bending over and twisting of her torso. Troponin is negative X2. EKG reads old previous infarct. Telemetry at bedside shows NSR without ST elevation or depression. No diarrhea but admits a history of constipation due to multiple abdominal surgeries. She states her blood pressure was elevated being with systolic above 200 prior to admission. Does not usually take antihypertensives. 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 She is non-smoker. Admits being active in life, cutting her own yard. She has not seen a roof bolting coal miner in the past. Admits a hx of similar chest pain in the past and was diagnosed with pleurisy.] 09/01 Patient states continues with nonspecific pain, reproducible with inspiration and moving of torso. CTA chest was negative for PE. Troponin remains negative. No adverse events per tele. Has minimal hypertension. Will start amlodipine. Patient was discharged home in stable condition, advised to follow up with her PCP for monitoring of blood pressure. Patient verbalized understanding. CHRONIC PROBLEMS: continue previous management per PCP unless otherwise indicated DISCHARGE MEDICATIONS: As listed below Pt hemodynamically stable and afebrile at time of discharge. PCP notified of patients admission, hospital course and discharge. New Medications: Amlodipine Besylate (Amlodipine Besylate) 5 Mg Tablet 1 TAB PO DAILY for 30 Days, #30 TAB 0 Refills Discontinued Medications: Cefdinir (Cefdinir) 300 Mg Capsule 300 MG PO BID, CAP PHYSICAL EXAM: GENERAL: alert, weak, awake oriented x 3 HEENT: EOMI, Sclera non icteric, moist mucosa NECK: Supple, no JVD, trachea midline LUNGS: Clear breath sounds bilaterally. No wheezes HEART: Regular rate and rhythm. Normal S1 and S2, without murmurs ABD: Abdomen soft, nontender. Bowel sounds present EXT: No clubbing cyanosis or edema NEURO: Alert and oriented to person, follows commands FOLLOW-UP: Follow-up with PCP in 2-3 days. Start amlodipine 5 mg daily, monitor blood pressure with PCP upon discharge. RECOMMENDATIONS: See Discharge Instructions This case was seen and discussed with my supervising physician. More than 30 minutes spent on discharge process, including evaluation of the patient, discussion with nursing staff, medication reconciliation and follow-up appointments SHAR ARELLANO Sep 01, 2024 16:06
== END 2024-09-01 18:36 | disposition home or self-care (01) ==
LOC: EDH 11:18 → EDHIP 11:19 → UNDOADMOB 12:50 → 3BH 16:50
PROVIDERS: ADMIT Internal Medicine Pulmonary Disease; ATTEND Internal Medicine Pulmonary Disease
DX: R07.89 Other chest pain (principal); R09.1 Pleurisy; I10 Essential (primary) hypertension; K59.09 Other constipation; E78.00 Pure hypercholesterolemia, unspecified; Z90.49 Acquired absence of other specified parts of digestive tract; Z79.899 Other long term (current) drug therapy
CPT/HCPCS: 36415; 71045; 71270; 80048; 81003; 82550; 83880; 84484; 85025; 85610; 85730; 93005; 94640; 94664; 96360; G0378; Q9967

== ENCOUNTER → 2024-10-01 | Outpatient (CLI) | payer MEDICARE ==
[~2024-10-01] MED LIST changes: +AMLO-257 PO; -DEXAMETHASONE SOD PHOSPHATE 10MG/ML 1ML VIAL ONE; -FENTANYL CITRATE PF 50 MCG/1 ML 2ML VIAL ONE; -GLYCOPYRROLATE 0.2 MG/ML 5 ML VIAL ONE; -LIDOCAINE PF 100MG/5ML (2%) SYRINGE 5ML ONE; -MIDAZOLAM HCL 1 MG/ML 2ML VIAL ONE; -NEOSTIGMINE METHYLSULFATE 1MG/ML IV ONE; -ONDANSETRON 4MG INJ ONE; -PROPOFOL 10 MG/ML 20ML VIAL IV ONE; -ROCURONIUM BROMIDE 10MG/1ML 5ML VL ONE; -SUCCINYLCHOLINE CHLORIDE 20 MG/ML 10 ML VIAL ONE
--- NOTE | 2024-10-01 14:17 | HMCIMG ---
Exam Type: CT HEAD/BRAIN W/O CONTRAST Clinical Information: Transient alteration of awareness Comparison: None CT Dose Index (CTDI): 57.33 mGy Dose Length Product (DLP): 956.79 total mGy-cm Findings: The examination is unremarkable. Grajeda-white matter junction is preserved. No intra or extra axial lesions or fluid collections are seen. Specifically, grajeda and white matter are normal in signal characteristics with normal caliber of ventricles and periventricular cisterns with no evidence of intra or or extra-axial hemorrhage, lacunar infarct, or major territorial infarct, mass, or other abnormality. There are no infarcts. There are no hemorrhages. Periventricular white matter locations are preserved. The orbital contents and structures of the posterior fossa are intact. Impression: Normal CT of the head. This study was performed using dose reduction techniques to include automated exposure control and/or adjustment of the mA and/or kV according to patient size.
== END | disposition home or self-care (01) ==
LOC: RAH 12:47
PROVIDERS: ATTEND Family Medicine
DX: R40.4 Transient alteration of awareness (principal)
CPT/HCPCS: 70450

== ENCOUNTER → 2024-10-27 | Outpatient (CLI) | payer MEDICARE, MEDICAID ==
--- NOTE | 2024-10-27 16:30 | HMCSR ---
APPROVED REPORT EXAM: Two-dimensional and M-mode echocardiogram with Doppler and color Doppler. INDICATION ICD: Z13.6 2D Dimensions RVDd3.4 cmLVEF(%)61.2 (>50%)LVED Vol(simp.)48.0 mL IVSd0.8 (0.7-1.1cm)FS(%)33 %LVES Vol(simp.)20.0 mL LVDd4.6 (3.8-5.6cm)LA (2D)3.6 (1.6-4.0cm)LVEF(%, simp.)59 % PWd0.7 (0.7-1.1cm)Ao Root(2D)3.1 (2.0-3.7cm)LA ESV INDEX (BP)31.34 mL/m2 IVSs0.9 cmLVOT diam1.9 (1.8-2.4cm) LVDs3.1 (2.5-4.0cm)IVC diam0.8 cm PWs1.1 cm M-Mode Dimensions EPSS0.3 cm LA (MM)3.7 (1.6-4.0cm) Ao Root(MM)3.1 (2.0-3.7cm) Aortic Valve AoV Vmax1.4 m/[place] Peak GR8.4 mmHgLVOT Vmax1.2 m/s AoV VTI0.3 mAo Mean GR4.2 mmHgLVOT VTI0.26 m DOMINGO (VMAX)2.33 cm2AVA (VTI) 2.4 cm2 Mitral Valve MV E Vmax84.5 cm/sDECEL Rrqs035 ms MV A Vmax87.8 cm/sP 1/2 T32 ms E/A ratio1.0MVA (PHT)6.9 cm2 TDI E/E' Rvcdey80.0E/E' Kjoqcit67.2 Medial E' Peak V5.29 cm/sLateral E' Peak V6.95 cm/s Pulmonary Valve PV Vmax1.0 m/sPV VTI0.21 mPV Mean GR2.6 mmHg PV Peak GR4.3 mmHg Tricuspid Valve TR Vmax2.3 m/sRAP (EST) 3 tsNpCVEP34.4 mmHg TR Peak GR20.4 mmHg Left Ventricle The left ventricle is normal size. There is normal left ventricular wall thickness. LVEF is 60-65%. T he left ventricular diastolic function is normal. Right Ventricle The right ventricle is normal size. The right ventricular systolic function is normal. Atria The left atrium size is normal. The right atrium size is normal. Aortic Valve Aortic valve is trileaflet and opens well. No aortic regurgitation is present. There is no aortic yusra vular stenosis. Mitral Valve The mitral valve is normal in structure. There is trace of mitral valve regurgitation noted. There is no mitral valve stenosis. Tricuspid Valve The tricuspid valve is normal in structure. There is trace of tricuspid valve regurgitation noted. Pulmonic Valve The pulmonary valve is normal in structure. There is no pulmonic valvular regurgitation. Great Vessels The aortic root is normal in size. The IVC is normal in size and collapses >50% with inspiration. Pericardium There is no pericardial effusion. Other Information Quality : Adequate Conclusion LVEF is 60-65%.
== END | disposition home or self-care (01) ==
LOC: RAH 13:22
PROVIDERS: ATTEND Family Medicine
DX: Z13.6 Encounter for screening for cardiovascular disorders (principal)
CPT/HCPCS: 93306

== ENCOUNTER → 2024-10-28 | Outpatient (CLI) | payer MEDICARE, MEDICAID ==
--- NOTE | 2024-10-28 10:13 | HMCIMG ---
Findings: No fluid collections or masses are seen. Significantly, there is no evidence of hematoma. No increased fluid throughout the visualized tissue planes is identified. No lymphadenopathy is identified. Impression: No evidence of hematoma or fluid collections or other abnormalities. Normal sized lymph nodes seen bilaterally.
== END | disposition home or self-care (01) ==
LOC: RAH 09:11
PROVIDERS: ATTEND Family Medicine
DX: R59.0 Localized enlarged lymph nodes (principal); M79.89 Other specified soft tissue disorders
CPT/HCPCS: 76536

== ENCOUNTER 2024-11-05 11:38 | Emergency (ER) | payer OTHER, MEDICARE ==
[~2024-11-05] VITALS: Ht 157.5 cm; Wt 65.8 kg
[2024-11-05 12:12] LABS: BASOPHILS # (AUTO) 0.05 K/uL (0.00-0.20); BASOPHILS % (AUTO) 0.9 % (0.0-5.0); EOSINOPHILS # (AUTO) 0.07 K/uL (0.00-0.70); EOSINOPHILS % (AUTO) 1.3 % (0.0-8.0); HEMATOCRIT 40.9 % (36-48); IMMATURE GRANULOCYTE ABSOLUTE 0.01 K/uL (0-1); LYMPHOCYTES # (AUTO) 1.1 K/uL (1.0-4.8); LYMPHOCYTES % (AUTO) 20.7 % (21.0-51.0); MEAN CORPUSCULAR HEMOGLOBIN 32.6 pg (27.0-33.0); MEAN CORPUSCULAR HGB CONC 34.5 g/dL (32.0-36.0); MEAN CORPUSCULAR VOLUME 94.5 fL (79-99); MONOCYTES # (AUTO) 0.5 K/uL (0.1-1.0); MONOCYTES % (AUTO) 8.7 % (3.0-13.0); NEUTROPHILS # (AUTO) 3.7 K/uL (1.8-7.7); NEUTROPHILS % (AUTO) 68.2 % (40.0-77.0); PLATELET COUNT (AUTO) 292 K/uL (130-400); RED BLOOD CELL COUNT(AUTO) 4.33 MIL/uL (4.00-5.50); RED CELL DISTRIBUTION WIDTH 13.2 % (11.0-15.5); WHITE BLOOD COUNT (AUTO) 5.4 K/uL (4.8-10.8)
[2024-11-05 12:19] LABS: CREATININE 0.8 mg/dL (0.5-1.0); POTASSIUM 4.3 mmol/L (3.5-5.1)
--- NOTE | 2024-11-05 12:33 | NUR ---
CALL LIGHT PROVIDED TO PT. LIGHT TURNED OFF FOR COMFORT.
[2024-11-05] MEDS ORDERED: IOHEXOL-350 75 ML VIAL IV ONE ×2 (12:49→12:56)
[2024-11-05] MEDS: 0.9%NACL 1000ML 1,000 ML IV STA (13:59)
--- NOTE | 2024-11-05 15:34 | HMCIMG ---
CT PELVIS W/CONTRAST HISTORY: Rule out abscess COMPARISON: None TECHNIQUE: Multiple sequential axial images of the pelvis were obtained from the iliac crests through symphysis pubis. Patient was given 75 cc of Omnipaque through intravenous route. Oral contrast was not given. FINDINGS: There are normal sized pelvic and inguinal lymph nodes. Fecal material seen throughout the colon. Diverticula are seen within the colon consistent with diverticulosis. No ascites is seen. Atherosclerotic changes are present. Irregularity is seen in the lateral area with soft tissue density most likely related to perianal abscess versus inflammatory changes. There is diverticulosis. Pelvic sidewalls are symmetric bilaterally. The bladder is poorly distended. IMPRESSION: 1. Irregularity is seen in the lateral area with soft tissue density most likely related to perianal abscess versus inflammatory changes. There is diverticulosis. CT was performed with one or more following dose reduction techniques: automated exposure control, adjustment of the mA and kv according to patient's size, or use of a iterative reconstruction technique.
--- NOTE | 2024-11-05 15:44 | ERN ---
ED Note History of Present Illness Stated Complaint: RT BUTTOCK ABSCESS Chief Complaint: Abscess Time Seen by MD: 11:41 Time Seen by Midlevel: 11:44 Dictation: 74-year-old female coming in with complaining of rectal pain onset one month. Worsening today. Patient states she does have a history and abdomen abscess where she had to be admitted to the ICU. Denies having any fever nausea or vomiting or diarrhea or any blood in stool. Medical history includes hypertension, surgical history includes hernia repair, appendectomy, hysterectomy, cholecystectomy. Allergies: Coded Allergies: codeine (Unverified Allergy, Unknown, 12/24/22) Sulfa (Sulfonamide Antibiotics) (Unverified Adverse Reaction, Unknown, 11/05/24) UPSET STOMACH propoxyphene (Unverified Adverse Reaction, Unknown, 11/05/24) UPSET STOMACH. tetracycline (Unverified Adverse Reaction, Unknown, 11/05/24) UPSET STOMACH. NOT ALLERGIC REACTION Home Meds Active Scripts Clindamycin HCl (Clindamycin HCl) 300 Mg Capsule, 1 CAP PO TID for 10 Days, #30 CAP 0 Refills Prov:ROSIBEL UREÑA NP 11/05/24 Amlodipine Besylate (Amlodipine Besylate) 5 Mg Tablet, 1 TAB PO DAILY for 30 Days, #30 TAB 0 Refills Prov:SHAR ARELLANO 09/01/24 Past Medical History Past Medical History: Abscess, Hypertension Surgical History: Appendectomy, Cholecystectomy, BTL, Surgical History Other: HERNIA REPAIR, SINUS, CTR Review of System Dictation Constitutional: Negative for fever,chills, and weight loss Eyes: Negative for injury, pain,redness, and discharge ENT: Negative for injury,pain or swelling Cardiovascular: Negative for chest pain, palpitations, and edema Respiratory: Negative for shortness of breath, cough, and wheezing, Abdomen/GI: Negative for abdominal pain, nausea, vomiting, diarrhea, and constipation Back: Negative for injury and pain : Negative for injury, bleeding and discharge, rectal pain MS/Extremity: Negative for injury and deformity Skin: Negative for rash, and discoloration Neuro: Negative for headache, weakness, numbness, tingling, and seizure Psych: Negative for suicide ideation, homicidal ideation, and hallucinations Review of Systems: was completed Initial Vital Sign VS Vital Signs Date Time Temp Pulse Resp B/P (MAP) Pulse Ox O2 Delivery O2 Flow Rate FiO2 11/05/24 11:40 98.2 73 16 159/85 99 Room Air 0 11/05/24 12:00 21 Physical Exam Dictation Constitutional: Negative for fever,chills, and weight loss Eyes: Negative for injury, pain,redness, and discharge ENT: Negative for injury,pain or swelling Cardiovascular: Negative for chest pain, palpitations, and edema Respiratory: Negative for shortness of breath, cough, and wheezing, Abdomen/GI: Negative for abdominal pain, nausea, vomiting, diarrhea, and constipation Back: Negative for injury and pain : Negative for injury, bleeding and discharge MS/Extremity: Negative for injury and deformity Skin: Negative for rash, and discoloration Neuro: Negative for headache, weakness, numbness, tingling, and seizure Psych: Negative for suicide ideation, homicidal ideation, and hallucinations Results (Laboratory/Radiology) Laboratory/Radiology Laboratory Tests Test 11/05/24 12:04 11/05/24 15:41 White Blood Count 5.4 K/uL (4.8-10.8) Red Blood Count 4.33 MIL/uL (4.00-5.50) Hemoglobin 14.1 g/dL (12.0-16.0) Hematocrit 40.9 % (36-48) Mean Corpuscular Volume 94.5 fL (79-99) Mean Corpuscular Hemoglobin 32.6 pg (27.0-33.0) Mean Corpuscular Hemoglobin Concent 34.5 g/dL (32.0-36.0) Red Cell Distribution Width 13.2 % (11.0-15.5) Platelet Count 292 K/uL (130-400) Mean Platelet Volume 9.7 fL (7.5-10.5) Immature Granulocyte % (Auto) 0.2 % (0-1) Neutrophils (%) (Auto) 68.2 % (40.0-77.0) Lymphocytes (%) (Auto) 20.7 % (21.0-51.0) L Monocytes (%) (Auto) 8.7 % (3.0-13.0) Eosinophils (%) (Auto) 1.3 % (0.0-8.0) Basophils (%) (Auto) 0.9 % (0.0-5.0) Neutrophils # (Auto) 3.7 K/uL (1.8-7.7) Lymphocytes # (Auto) 1.1 K/uL (1.0-4.8) Monocytes # (Auto) 0.5 K/uL (0.1-1.0) Eosinophils # (Auto) 0.07 K/uL (0.00-0.70) Basophils # (Auto) 0.05 K/uL (0.00-0.20) Absolute Immature Granulocyte (auto 0.01 K/uL (0-1) Nucleated Red Blood Cells 0.0 % (0.0-0.19) Sodium Level 141 mmol/L (136-145) Potassium Level 4.3 mmol/L (3.5-5.1) Chloride Level 104 mmol/L (101-111) Carbon Dioxide Level 31 mmol/L (21-32) Blood Urea Nitrogen 23 mg/dL (7-18) H Creatinine 0.8 mg/dL (0.5-1.0) Glomerular Filtration Rate Calc 76 mL/min (>90) Random Glucose 105 mg/dL (70-105) Total Calcium 9.5 mg/dL (8.5-10.1) Urine Color COLORLESS (YELLOW) Urine Appearance CLEAR (CLEAR) Urine pH 5.5 (5.0-8.0) Urine Specific Welch 1.040 (1.001-1.031) Urine Protein NEGATIVE mg/dL (NEGATIVE) Urine Glucose (UA) NEGATIVE mg/dL (NEGATIVE) Urine Ketones NEGATIVE mg/dL (NEGATIVE) Urine Occult Blood NEGATIVE (NEGATIVE) Urine Nitrate NEGATIVE (NEGATIVE) Urine Bilirubin NEGATIVE mg/dL (NEGATIVE) Urine Urobilinogen 0.2 mg/dL (0.2-1.0) Urine Leukocyte Esterase NEGATIVE Víctor/uL Labs Reviewed?: Yes CT Scan Comment: [place] [id number] [id number] IMAGING REPORT Signed PATIENT: ROYER SERRANO MR#: [id number] : 1950 SEX: F AGE: 74 LOCATION: [facility] ORDER [id number] STATUS: REG ER REPORT#: [id number] SERVICE 114 REASON: r/o abscess ORDERING PHYSICIAN: ROSIBEL UREÑA NP PROCEDURE: PELVIS W - CT PELVIS W/CONTRAST CT PELVIS W/CONTRAST HISTORY: Rule out abscess COMPARISON: None TECHNIQUE: Multiple sequential axial images of the pelvis were obtained from the iliac crests through symphysis pubis. Patient was given 75 cc of Omnipaque through intravenous route. Oral contrast was not given. FINDINGS: There are normal sized pelvic and inguinal lymph nodes. Fecal material seen throughout the colon. Diverticula are seen within the colon consistent with diverticulosis. No ascites is seen. Atherosclerotic changes are present. Irregularity is seen in the lateral area with soft tissue density most likely related to perianal abscess versus inflammatory changes. There is diverticulosis. Pelvic sidewalls are symmetric bilaterally. The bladder is poorly distended. IMPRESSION: 1. Irregularity is seen in the lateral area with soft tissue density most likely related to perianal abscess versus inflammatory changes. There is diverticulosis. CT was performed with one or more following dose reduction techniques: automated exposure control, adjustment of the mA and kv according to patient's size, or use of a iterative reconstruction technique. DICTATED BY: SUNDAR DUGGAN MD DATE: 11/05/24 153 ELECTRONICALLY SIGNED BY: SUNDAR DUGGAN MD DATE: 11/05/24 1534 ED Course ED Course Orders Procedure Category Date Status Time Cbc With Differential LAB 11/05/24 Complete 11:46 Basic Metabolic Panel LAB 11/05/24 Complete 11:46 Urinalysis Profile LAB 11/05/24 Complete 11:46 Ct Pelvis W/Contrast CT 11/05/24 Resulted 11:46 0.9%Nacl 1000ml (Ns PHA 11/05/24 Complete 1000ml) 11:46 Iohexol (Omnipaque) PHA 11/05/24 Complete 12:49 Iohexol (Omnipaque) PHA 11/05/24 Complete 12:56 Clindamycin Ivpb PHA 11/05/24 Complete 600mg/50ml (Cleocin 16:00 Current Medications Medications (Trade) Dose Ordered Sig/Aki Route PRN Reason Start Time Stop Time Status Last Admin Dose Admin Clindamycin HCl/ Dextrose 50 ml @ 100 mls/hr Q8H IV 11/05/24 16:00 11/05/24 18:13 DC 11/05/24 16:33 Iohexol (Omnipaque) 75 ml STK-MED ONCE IV 11/05/24 12:49 11/05/24 12:49 DC Iohexol (Omnipaque) 75 ml STK-MED ONCE IV 11/05/24 12:56 11/05/24 12:57 DC Sodium Chloride 1,000 ml @ 1,000 mls/hr Q1H STAT IV 11/05/24 11:46 11/05/24 12:45 DC 11/05/24 13:59 Vital Signs Date Time Temp Pulse Resp B/P (MAP) Pulse Ox O2 Delivery O2 Flow Rate FiO2 11/05/24 18:00 98.4 70 18 141/70 98 Room Air* 0 21 11/05/24 16:05 98.4 68 17 142/72 98 Room Air* 0 21 11/05/24 13:33 98.2 65 16 146/75 99 Room Air 0 11/05/24 13:25 98.2 65 16 146/75 98 Room Air* 0 21 11/05/24 12:00 98.2 73 16 159/85 99 Room Air* 0 11/05/24 11:40 98.2 73 16 159/85 99 Room Air 0 Medical Decision Making MDM MDM: 74-year-old female coming in with complaining of rectal pain onset one month. Worsening today. Patient states she does have a history and abdomen abscess where she had to be admitted to the ICU. Denies having any fever nausea or vomiting or diarrhea or any blood in stool. Medical history includes hypertension, surgical history includes hernia repair, appendectomy, hysterectomy, cholecystectomy. Blood work all unremarkable. Patient is not febrile tachycardic. No leukocytosis, no evidence of systemic infection. CT scan shows a perianal abscess versus inflammatory changes. Discussed findings with the patient. Gave patient option to be admitted for IV antibiotics, however patient prefers to be discharged after a dose out of antibiotics she will continue taking p.o. antibiotics at home. Discussed with the patient red flag symptoms to return back to the emergency room. Patient verbalized understanding, answered all questions. Differential diagnosis: Cellulitis, or perirectal abscess, perianal abscess Rationale: Tests considered and ordered secondary to shared decision making include: Previous outside records reviewed: Old ER visits. Risk of complication and/or morbidity or mortality of patient management: None Medications-Per medication reconciliation Need for hospitalization: Patient does not meet criteria for hospitalization. Need for emergency major/minor surgery: No There are no social concerns with this patient. Prescription drug management Prescriptions will include symptomatic care Patient's prior external medical records from other ER visits were reviewed by me as indicated. Prior testing and results from previous visits were reviewed. Prior tests were taken into account with medical decision making and resource utilization, independent historian/historians were used to obtain complete medical history. I independently interpreted the test that were performed, results were reviewed by me and considered findings on radiology if ordered. Medical management and examination interpretation discussions were had by me with other qualified healthcare professionals as indicated for the patient's care. DX & DISP Disposition: Discharge Departure Impression: Primary Impression: Perianal abscess Condition: Stable Scripts Clindamycin HCl (Clindamycin HCl) 300 Mg Capsule 1 CAP PO TID for 10 Days, #30 CAP 0 Refills Prov: ROSIBEL UREÑA NP 11/05/24 Additional Instructions: If you began to develop any fever nausea and vomiting or you feel it getting larger in the next 48 hours please return back to the emergency room. Referrals: JERICA CARRILLO (PCP) Time of Disposition: 17:09 I have reviewed the case, and I agree with, Diagnosis and Plan ROSIBEL UREÑA NP Nov 05, 2024 15:44 ANNALISA POLO DO Nov 06, 2024 08:16
[2024-11-05 15:55] LABS: APPEARANCE,URINE CLEAR (CLEAR); BILIRUBIN,URINE NEGATIVE (NEGATIVE); COLOR,URINE COLORLESS (YELLOW); GLUCOSE, URINE (UA) NEGATIVE (NEGATIVE); KETONES,URINE NEGATIVE (NEGATIVE); LEUKOCYTE ESTERASE ,URINE NEGATIVE Leu/uL (NEGATIVE); NITRATE,URINE NEGATIVE (NEGATIVE); OCCULT BLOOD,URINE NEGATIVE (NEGATIVE); PH,URINE 5.5 (5.0-8.0); PROTEIN,URINE NEGATIVE (NEGATIVE); UROBILINOGEN,URINE 0.2 mg/dL (0.2-1.0)
[2024-11-05 15:57] LABS: ADD UA MICROSCOPIC NO
[2024-11-05] MEDS: CLINDAMYCIN IVPB 600MG/50ML 50 ML IV SCH (16:33)
[2024-11-05] MEDS ORDERED: CLIN-141 PO (17:09)
[2024-11-05 18:00] VITALS: BP 141/70; PULSE 70; RESP 18; TEMP 98.5; O2SAT 98
== END 2024-11-05 18:13 | disposition home or self-care (01) ==
LOC: EDH 11:38
DX: K61.0 Anal abscess (principal); I10 Essential (primary) hypertension; Z88.1 Allergy status to other antibiotic agents; Z88.2 Allergy status to sulfonamides; Z88.5 Allergy status to narcotic agent; Z90.49 Acquired absence of other specified parts of digestive tract; Z98.51 Tubal ligation status; Z98.890 Other specified postprocedural states
CPT/HCPCS: 99285; 96365; 72193; 96361; 80048; 85025; 81003; 36415; J7030; J3490; Q9967